=== PATIENT | female | born 1995 | race African-American/Black ===

== ENCOUNTER 2017-09-01 10:29 | Emergency (ER) | payer OTHER, SELFPAY | END 2017-09-01 13:02 | disposition home or self-care (01) | LOC: ERS 10:29 | DX: B34.9 Viral infection, unspecified (principal); R07.81 Pleurodynia | CPT/HCPCS: 99283 ==

== ENCOUNTER 2020-12-19 08:50 | Emergency (ER) | payer SELFPAY ==
[2020-12-19 09:47] LABS: Bilirubin Negative (Negative); Blood, Urine Negative (Negative); Clarity Clear (Clear); Glucose, Urine (Dipstick) Normal (Negative); Ketone, Urine Negative (Negative); Leukocyte Negative Leu/uL (Negative); Nitrite Negative (Negative); Protein, Urine (Dipstick) 20 mg/dL (Neg-Trace); Urobilinogen Normal mg/dL (Less than 2)
[2020-12-19 11:33] LABS: #Eosinphils 0.1 thou/uL (0.0-0.7); #Lymphocytes 1.1 thou/uL (1.20-3.40); #Monocytes 0.3 thou/uL (0.11-0.59); #Neutrophils 4.4 thou/uL (1.40-6.50); %Basophils 0.6 % (0.0-1.0); %Eosinophils 2.1 % (0.0-10.0); %Lymphocytes 18.7 % (21.0-51.0); %Monocytes 5.5 % (0.0-10.0); %Neutrophils 73.1 % (42.0-75.0); Hemoglobin 12.2 g/dL (12.0-16.0); Mean Corpuscular HGB CONC 32.2 g/dL (32.0-36.0); Mean Corpuscular Hemoglobin 27.3 pg (27.0-31.0); Mean Corpuscular Volume 84.6 fL (78.0-98.0); Mean Platelet Volume 7.2 fL (7.4-10.4); Platelet Count 289 thou/uL (130-400); RBC Distribution Width 13.1 % (11.5-14.5); Red Blood Cell (RBC) Count 4.46 mill/uL (4.20-5.40)
[2020-12-19 11:58] LABS: ALT (SGPT) 14 U/L (8-55); AST (SGOT) 18 U/L (5-34); Albumin 3.8 g/dL (3.5-5.0); Alkaline Phosphatase 55 U/L (40-110); Anion Gap 12 mmol/L (10-20); BUN (Urea Nitrogen) 5 mg/dL (7.0-18.7); Bilirubin, Total 0.4 mg/dL (0.2-1.2); Calc. Creatinine Clearance 0 mL/min (70-130); Carbon Dioxide 24 mmol/L (22-29); Chloride 105 mmol/L (98-107); Globulin 3.5 g/dL (2.4-3.5); Glucose 84 mg/dL (70-105); Lipase 12 U/L (8-78); Potassium 3.9 mmol/L (3.5-5.1); Protein, Total 7.3 g/dL (6.0-8.3); Sodium 137 mmol/L (136-145)
[2020-12-19] MEDS ORDERED: Iopamidol-370 76% 500 ML 1 ML ONE (13:56)
[2020-12-19] MEDS ORDERED: Piperacillin/Tazobactam 4.5 GM VIAL ONE (14:51)
== END 2020-12-19 19:00 | disposition short-term general hospital (02) ==
LOC: ERS 08:50
DX: N70.93 Salpingitis and oophoritis, unspecified (principal)
CPT/HCPCS: 36415; 74177; 76856; 80053; 81003; 83690; 84702; 85025; 87040; 93976; 96365; J2543; Q9967